=== PATIENT | female | born 1940 | race Asian ===

== ENCOUNTER → 2019-06-04 | Outpatient (CLI) | payer OTHER, BC | END | disposition home or self-care (01) | LOC: US 08:48 | PROC: BW40ZZZ Ultrasonography of Abdomen (ICD-10-PCS; principal; 2019-06-04) | DX: K30 Functional dyspepsia (principal); R19.07 Generalized intra-abdominal and pelvic swelling, mass and lump | CPT/HCPCS: Q0092 ==